=== PATIENT | female | born 1945 | race Caucasian/White ===

== ENCOUNTER → 2017-04-09 | Outpatient (CLI) | payer MEDICARE, OTHER ==
[~2017-04-09] MED LIST: LEVO25TA4 PO; OMEP20 PO; TOLT2TAB2 PO; ZOLOFT PO
== END | disposition home or self-care (01) ==
LOC: RADPV 14:00
PROVIDERS: ATTEND Orthopaedic Surgery
DX: M17.12 Unilateral primary osteoarthritis, left knee (principal); I70.202 Unspecified atherosclerosis of native arteries of extremities, left leg